=== PATIENT | male | born 1960 | race Caucasian/White ===

== ENCOUNTER → 2018-03-04 09:12 | Outpatient (CLI) | payer OTHER, SELFPAY ==
--- NOTE | 2018-03-04 09:18 | US_ITS ---
STUDY: ABDOMINAL ULTRASOUND REASON FOR EXAM: Male, 57 years old. H/O HEP C TECHNIQUE: Transabdominal ultrasound was performed with real-time and static crowley scale imaging. TECHNICAL QUALITY: Adequate. COMPARISON: None. FINDINGS: Liver: The liver measures 18.1 cm. There is increased echogenicity consistent with fatty infiltration. The bile ducts are within normal limits. There is hepatic color flow. The direction of portal flow is hepatopetal. There is no demonstrated mass lesion. Portal vein measurement: Gallbladder: Normal distended gallbladder. The gallbladder wall measures 2 mm. There is a negative sonographic Parrish's sign. There is no pericholecystic fluid. There are no gallstones. Common Bile Duct (C.B.D.): The common bile duct measures 5 mm. Pancreas: There is nonvisualization of the pancreas. Spleen: Normal size of the spleen. The spleen measures 14.4 cm. Right Kidney: Normal size of the right kidney. The right kidney measures 11.6x5.8x5.6 cm. Normal renal cortex. The right cortex measures 1.5 cm. Right renal cyst measuring 14 x 17 x 13 mm 13 x 10 x 12 mm. There is no right hydronephrosis. Left Kidney: Normal size of the left kidney. The left kidney measures 10.6x5x6 cm. Normal renal cortex. The left cortex measures 1.6 cm. There is no demonstrated renal mass or cyst. There is no left hydronephrosis. Aorta: 23 mm in maximal aortic diameter. I.V.C.: The IVC is patent. There is no ascites. US/Abdomen Complete IMPRESSION: Simple right renal cyst. Fatty liver Electronically Signed: Eb Brito MD at 23:19 EDT , Service support ,
== END ==
PROVIDERS: Referring Provider Internal Medicine Medical Oncology; Visit Provider Internal Medicine Medical Oncology
DX: N28.1 Cyst of kidney, acquired (principal); K76.0 Fatty (change of) liver, not elsewhere classified; Z86.19 Personal history of other infectious and parasitic diseases
CPT/HCPCS: 76700

== ENCOUNTER → 2019-02-17 09:40 | Outpatient (CLI) | payer OTHER, SELFPAY ==
[2019-02-17 09:50] VITALS: BP 166/77; PULSE 56; RESP 14; TEMP 36.5; O2SAT 96; BMI 29.7
--- NOTE | 2019-02-17 10:18 | ONC.OV1 ---
Subjective - Date of Service Date of Service:: 02/17/19 - Chief Complaint F/u for Hemophilia B. 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 He has herniated disc in the back, still has low back pain on and off. Also has lung nodule and hepatitis C. CT chest on 01/06/2017 showed calcified mediastinal nodes and old granulomatous lung nodules. Abdominal US showed fatty liver and R simple kidney cyst on03/04/2019. Has not used any Factor replacement this yr. - Past Medical/Social History Past Medical History Past Medical History: Bleeding disorder Other Past Medical History: MRI (DEC) BACK PAIN Past Surgical History Surgical: Appendectomy Other Surgical History: FX LT ELBOW Family History Paternal Past Medical History: Unknown Maternal Past Medical History: Diabetes mellitus Social History Social History: No changes Smoking Status Former smoker Review of Systems Constitutional:: Denies: Fever, Sweats, Weight loss, Appetite change, Chills Cardiovascular:: Denies: Chest pain, Palpitations, Dyspnea on exertion, Orthopnea, PND, Shortness of breath Respiratory: Denies: Cough, Hemoptysis, Shortness of Breath, Wheezing Gastrointestinal:: Denies: Abdominal pain, Nausea, Vomiting, Diarrhea, Constipation, Hematochezia Genitourinary: Denies: Dysuria, Hematuria, 15, Flank pain Musculoskeletal:: Reports: Backache - lower, worse with standing. Vital Signs Height 5 ft 8 in Weight: 88.904 kg Weight in Pounds 196.0 lbs Pulse Ox 96 Temperature 97.7 F Pulse Rate 56 Respiratory Rate 14 Blood Pressure 166/77 Blood Pressure Position Sitting - Physical Exam General: Alert, Oriented x3, No apparent distress HEENT: Atraumatic, PERRLA, EOMI, Normocephalic Oropharynx:: Dry mucosa Neck:: Supple, Trachea midline. Negative for: JVD, bilateral Cardiac:: Regular rate, Regular rhythm, Normal S1, Normal S2. Negative for: Murmur Lungs: Clear to auscultation, Excusion symmetrical. Negative for: Rhonchi, Wheezes Abdomen:: Bowel sounds x 4, Soft, Non-tender, Non-distended. Negative for: Hepatosplenomegaly Extremities:: Negative for: Cyanosis, Edema Neurological: Neuro grossly intact Skin:: Negative for: Lesions, Rash, Petechiae, Ecchymosis Psychiatric:: Appropriate affect, Euthymic Lymphatics:: Negative for: Cervical lymphadenopathy, Supraclavicular lymphadenopathy, Axillary lymphadenopathy Assessment and Plan Primary Care Provider: DANIELLE MASON Referring Provider:
--- NOTE | 2019-02-17 10:30 | WMO.HTC_ITS ---
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 He has herniated disc in the back, still has low back pain on and off. Also has lung nodule and hepatitis C. CT chest on 01/06/2017 showed granulomatous lung nodules and calcified mediastinal nodes. US abdomen on 03/04/2018 showed R kidney cyst and fatty liver. Has not used any Factor replacement this yr. Health History: Past Medical History Past Medical History: Bleeding disorder Other Past Medical History: MRI (DEC) BACK PAIN Past Surgical History Surgical: Appendectomy Other Surgical History: FX LT ELBOW Family History Paternal Past Medical History: Unknown Maternal Past Medical History: Diabetes mellitus Past Medical History (Last Reviewed 02/17/19 @ 09:50 by Madina Garcia) Fracture of left elbow (Acute) Herniated disc (Acute) Past Surgical History (Last Reviewed 02/25/18 @ 11:39 by Madina Garcia) History of appendectomy (Acute) Family History (Last Reviewed 02/17/19 @ 09:50 by Madina Garcia) Mother Diabetes Social History Social History: No changes Smoking Status Former smoker Allergies/Adverse Reactions: Allergy/AdvReac Type Severity Reaction Status Date / Time aspirin Allergy Severe Other Verified 02/17/19 09:50 Risk Factors Social History Social History: No changes Smoking Status Former smoker Tobacco Risk Data: Tobacco Risk Smoking Status Former smoker Type of tobacco: Smokeless tobacco usage: Items/Day: Year started: Years used: Counseled to quit/cut down: Reason for no counseling performed: Reason for no pharmacotherapy: Tobacco use comments: Passive smoke exposure: Substance Risk Drug use: No Caffeine use [drinks/day]: 1 Alcohol use: No Type of alcohol: Drinks per day: Has patient felt the need to cut down: Has the patient been annoyed by complaints: Has the patient felt guilty about drinking: Has the patient needed an eye stave block roller in the mornings: Comments: Review of Systems Constitutional:: Denies: Fever, Sweats, Weight loss, Appetite change, Chills Cardiovascular:: Denies: Chest pain, Palpitations, Dyspnea on exertion, Orthopnea, PND, Shortness of breath Respiratory: Denies: Cough, Hemoptysis, Shortness of Breath, Wheezing Gastrointestinal:: Denies: Abdominal pain, Nausea, Vomiting, Diarrhea, Constipation, Hematochezia Genitourinary: Denies: Dysuria, Hematuria, 15, Flank pain Musculoskeletal:: Denies: Back pain, Myalgia, Arthralgia Skin: Denies: Rash, Skin Changes, Wounds Neurological:: Denies: Headache, Dizziness, Visual changes, Tinnitus, Hearing loss Psychiatric: Denies: Anxiety, Depression, Homicidal Ideations, Suicidal Ideations Vital Signs Height 5 ft 8 in Weight: 88.904 kg Weight in Pounds 196.0 lbs Pulse Ox 96 Temperature 97.7 F Pulse Rate 56 Respiratory Rate 14 Blood Pressure 166/77 Blood Pressure Position Sitting - Physical Exam General: Alert, Oriented x3, No apparent distress HEENT: Atraumatic, PERRLA, EOMI, Normocephalic Oropharynx:: Dry mucosa Neck:: Supple, Trachea midline. Negative for: JVD, bilateral Cardiac:: Regular rate, Regular rhythm, Normal S1, Normal S2. Negative for: Murmur Lungs: Clear to auscultation, Excusion symmetrical. Negative for: Rhonchi, Wheezes Abdomen:: Bowel sounds x 4, Soft, Non-tender, Non-distended. Negative for: Hepatosplenomegaly Extremities:: Negative for: Cyanosis, Edema Neurological: Neuro grossly intact Skin:: Negative for: Lesions, Rash, Petechiae, Ecchymosis Psychiatric:: Appropriate affect, Euthymic Lymphatics:: Negative for: Cervical lymphadenopathy, Supraclavicular lymphadenopathy, Axillary lymphadenopathy Assessment and Plan Hemophilia B, clinically stable. 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 H/O Hepatitis C. Plan is to continue expectant management with Factor replacement as needed. RTC 1 yr. Primary Care Provider: DANIELLE MASON Referring Provider:
== END ==
PROVIDERS: Visit Provider Internal Medicine Medical Oncology
DX: D67 Hereditary factor IX deficiency (principal)